=== PATIENT | male | born 1985 | race Caucasian/White ===

== ENCOUNTER 2016-10-16 15:45 | Emergency (ER) | payer OTHER | END 2016-10-16 15:48 | disposition home or self-care (01) | LOC: ER 15:45 | DX: S39.011A Strain of muscle, fascia and tendon of abdomen, initial encounter (principal); S90.31XA Contusion of right foot, initial encounter; I25.2 Old myocardial infarction; F17.210 Nicotine dependence, cigarettes, uncomplicated; Z90.49 Acquired absence of other specified parts of digestive tract; Z88.5 Allergy status to narcotic agent; X50.9XXA Other and unspecified overexertion or strenuous movements or postures, initial encounter ==